=== PATIENT | female | born 1985 | race Two or more races ===

== ENCOUNTER 2025-09-07 18:09 | Emergency (ER) | payer OTHER, SELFPAY ==
[2025-09-07 18:39] VITALS: BP 148/91; PULSE 114; RESP 18; TEMP 36.6; O2SAT 99; BMI 29.3
--- NOTE | 2025-09-07 18:42 | ED.GENADULT ---
HPI - General Adult General Chief complaint: Animal Bite Stated complaint: bit by dog yesterday Time Seen by Provider: 09/07/25 18:45 Source: patient Mode of arrival: ambulatory Limitations: no limitations History of Present Illness ED Provider: Niki Poole PA-C HPI narrative: Patient is a 40 year old assigned female at with no reported medical history presenting to the emergency department today with a dog bite to her left lower leg. Patient states that she was bit by her neighbors dog yesterday and confirmed the dog is up to date on his vaccinations and she is up to date on her tetanus status. Patient states that she was only bit on her left lower leg. Patient denies any other complaints at this time. Related Data Previous Rx's ?Medication ?Instructions ?Recorded doxycycline hyclate 100 mg tablet 100 mg PO BID 7 days #14 tabs 09/07/25 metronidazole 500 mg tablet 500 mg PO TID 7 days #21 tabs 09/07/25 Allergies Allergy/AdvReac Type Severity Reaction Status Date / Time Penicillins (PENICILLINS) Allergy Severe Anaphylaxis, Verified 09/07/25 18:40 Hives latex (LATEX) Allergy Intermediate HIVES Verified 09/07/25 18:40 seafood Allergy Intermediate Hives Verified 09/07/25 18:40 amoxicillin Allergy Unknown Hives Verified 09/07/25 18:40 peanut Allergy Unknown Verified 09/07/25 18:41 Review of Systems Constitutional: Constitutional: Reports as per HPI Eyes: Eyes: Reports as per HPI ENT: Reports as per HPI Cardiovascular: Cardiovascular: Reports as per HPI Respiratory: Respiratory: Reports as per HPI Gastrointestinal: Gastrointestinal: Reports as per HPI Genitourinary: Genitourinary: Reports as per HPI Musculoskeletal: Musculoskeletal: Reports as per HPI Integumentary/Breasts: Skin/Breast: Reports as per HPI Neurologic: Reports as per HPI Psychiatric: Psychiatric: Reports as per HPI Endocrine: Endocrine: Reports as per HPI Hematologic/Lymphatic: Hematologic/Lymphatic: Reports as per HPI Allergic/Immunologic: Allergic/Immunologic: Reports as per HPI [facility] Past Medical History Attestation statement: The following information was validated with the patient. Source: old records reviewed and nursing notes reviewed Social History Social History Advance Directives: No Advance Directives Information Provided: No Physical Exam ED Vital Signs: Vital Signs - 24 hr 09/07/25 18:39 09/07/25 19:09 Temperature 98 F 98 F Pulse Rate 114 H 114 H Respiratory Rate 18 18 Blood Pressure 148/91 H 148/91 H Pulse Oximetry 99 99 Oxygen Delivery Method Room Air Room Air BMI result Body Mass Index 29.3 Const General: cooperative, no acute distress, alert and awake Nutritional Appearance: well nourished Orientation/consciousness: patient oriented x3 HENMT Head: Yes normal to inspection and Yes atraumatic Ears: hearing grossly normal bilaterally and external ears normal General nose exam: Normal external nose present, no nasal discharge noted and no epistaxis Face and sinus: Yes normal facial exam, No abrasion and No laceration Mouth: Normal oral and palatal mucosa present, no drooling and no muffled voice Eyes General: appearance normal, both eyes and all related structures Periorbital: periorbital findings normal Eyelids: Yes eyelids normal Conjunctivae: conjunctivae normal Pupils: Equal, round and reactive pupils present EOM: EOMs intact bilaterally Neck Neck: Yes normal visual inspection and Yes full ROM Resp Effort & Inspection: normal respiratory effort and able to speak in complete sentences Neuro General: patient oriented x3, moves all extremities and CN's II-XI intact bilaterally Cranial nerves: Yes Equal, round and reactive pupils present Cognition (Neuro): normal cognition Extrem Other: General: Yes full ROM and Yes capillary refill normal Psych Appearance: grossly normal Mental Status: mental status grossly normal Affect: normal affect Attitude: cooperative Thought process: Normal thought process present Thought content: Normal thought content present Insight: Good insight present (Psych) Medical Decision Making Medical Decision Making MDM Narrative: Patient is a 40 year old assigned female at with no reported medical history presenting to the emergency department today with a dog bite to her left lower leg. Patient's physical exam was as noted in the physical exam portion of this note. No gaping areas requiring closure. I explained my physical exam findings to the patient. I answered all questions asked by the patient. Patient did not need to be brought up to date with tetanus given she already is and she confirmed the attacking dog is up to date on vaccinations. Patient prescribed PO Doxy + Flagyl given she has severe allergy to PCN + Amoxicillin. I stressed the importance of the patient taking her medication as directed (either prescribed or as the over the counter packaging recommends). I stressed the importance of the patient following up with her primary care provider. I stressed the importance of the patient returning to the emergency department immediately if she were to develop any dizziness, shortness of breath, difficulty breathing, chest pain, blurry vision, loss of vision, nausea, vomiting, abdominal pain, fever, chills, back pain, or any other complaints. Patient verbalized agreement and understanding with this treatment plan and discharge. Differential Diagnosis Differential Diagnoses: The differential diagnosis associated with the presentation includes Dog bite Hematoma Contusion Admission/Observation Consideration of admission/observation: Escalation of care including admission/observation considered Patient would have been admitted to the hospital had her clinical presentation warranted hospital admission. Prescription Management I considered prescription management with: Antibiotic (patient prescribed prophylactic antibiotic given she was bitten by a dog) Discharge Plan Discharge Clinical Impression: Bite by animal, Contusion Patient Disposition: Home, Self-Care Instructions: Hematoma (ED) Additional Instructions: Take your medication as prescribed. IF you are prescribed home medications and/or you are taking over the counter medications at home - it is very important you continue to do so as prescribed / directed unless told otherwise. Follow up with a primary care provider. Return to the emergency department immediately if your symptoms worsen or if you develop any numbness, tingling, dizziness, shortness of breath, difficulty breathing, chest pain, blurry vision, loss of vision, nausea, vomiting, abdominal pain, fever, chills, back pain, or any other complaints. If you do not have a primary care provider - call any of the below numbers to establish and follow up with a primary care provider. [facility] Primary Care ([place]) [phone] [place] [address], [address] [facility] Primary Care ([address] [place]) [phone] [place] [address], [address] [facility], [address] [facility] Primary Care ([address] [place]) [phone] [place] [address], [address] [facility], [address] [facility] Primary Care ([place]) [phone] [place] [address] 2 [facility], [address] [facility] Family Medicine [phone] [address] [facility], [address] Please see the information below about our Patient Portal. If you are not yet enrolled in the [facility] Patient Portal, you will receive an enrollment email invitation following your visit to any [facility] care setting. You may also self-enroll in the Patient Portal by visiting our website: [email or web address] The following information is required to access the Patient Portal: - Your [facility] Medical Record Number - Your personal home email address (must match what is in your electronic medical record, Registration staff can assist with this) - Name - Date of Capabilities of the Patient Portal: - Message some providers - View upcoming appointments - Access your health summary, medical history, and visit history - View current conditions and allergies - View procedure and lab results - View your medications, including guidelines, side effects, and precautions - Complete pre-appointment questionnaires requested by your provider - Ready summary reports of your office visits and procedures To access the Patient Portal Mobile Magda, follow these directions: - Search [employer] [place] in the Magda Store or Vocalcom Store - Download the Magda - Search for [facility] - Enter your login/password Prescriptions: New metronidazole 500 mg tablet 500 mg PO TID 7 Days Qty: 21 0RF doxycycline hyclate 100 mg tablet 100 mg PO BID 7 Days Qty: 14 0RF Stand Alone Forms: Work/School Release Interventions: ED Discharge Assessment Last Done: 09/07/25 19:09 Discharge Date/Time: 09/07/25 19:10 Print Language: Montenegrin
[2025-09-07 19:09] VITALS: BP 148/91; PULSE 114; RESP 18; TEMP 36.6; O2SAT 99
--- OUTSIDE RECORDS SUMMARY | 2025-09-07 19:34 | XMS_ITS | Clinical Summary ---
Author Organization [facility] Address [address] [place] [address] Phone Care Team Providers Care Postmaster Relief Name Role Phone Physician, No Pcp Primary Care Provider Unavaila ble Allergies Active Allergy Reactions Criticality Noted Date Comments Amoxicillin Anaphylaxis High 03/09/2017 Rash, dyspnea, chest heaviness Latex Anaphylaxis High 03/09/2017 Rash, dyspnea, chest heaviness Other Anaphylaxis High 07/01/2019 Seafood Rash, dyspnea, chest heaviness Peanut Itching 09/22/2021 Itchy throat. No swelling or trouble breathing. Penicillin G Anaphylaxis High 03/09/2017 Rash, dyspnea, chest heaviness Medications ibuprofen (ADVIL,MOTRIN) 600 mg tablet TAKE 1 TABLET BY MOUTH EVERY 6 HOURS NEEDED FOR CRAMPS 12/15/2023 Active PNV 112/iron/folic/ om3/dha/epa (VITAFOL GUMMIES ORAL) Vit-Fe Mqxz-UZ-Htreh (Vitafol Gummies) 3.33-0.333-34 .8 MG Chew Tab Patient sig: Take 3 Tablets by mouth daily. 03/24/2024 Active norgestimate-et hinyl estradioL (ORTHO-CYCLEN) 0.25-35 mg-mcg per tablet Take 1 Tablet by mouth daily for 360 days. 01/31/2024 Active Active Problems Problem Noted Date Diagnosed Date Poor dentition 05/31/2023 Overview (01/13/2025): Pt has no teeth and states in june she will be going to get fitted for dentures Immunizations Immunization Administration Dates Next Due Influenza trivalent, with preservative (Fluzone; Afluria) 6mo and older 08/26/2012 Tdap Tetanus diptheria acell ular pertussis (Boostrix; Adacel) 7yo and older 10/03/2023,01/18/2022,10/31/2019,2016 Varicella live (Varivax) 12m o and older 12/15/2023,01/28/2020 Surgical History Surgery Date Site/Laterality Comments MULTIPLE TOOTH EXTRACTIONS 2018 PROCEDURE: EACH ADD TOOTH EXTRACTION; COMMENT: upper partial plate Medical History Medical History Date Comments Anxiety and depression DX:Anxiet y and depression Obese 05/31/2023 DX:Obese; COMMEN T: bmi 31.4 Spontaneous DX:Spontane ous ; COMMENT: x2 recent Poor dental hygiene DX:Poor dent al hygiene PPH ( hemorrhage) DX:P PH ( hemorrhage); COMMENT: 2004- no blood transfusion records recieved Gestational hypertension DX:Gest ational hypertension Gonorrhea 10/20/2021 DX:Gonorrhea; CO MMENT: during History of chlamydia DX:History of chlamydia History of trichomoniasis DX:His tory of trichomoniasis History of 2019 novel crouch virus disease (COVID-19) 05/2021 DX:History of 2019 novel cor onavirus disease (COVID-19) Family History Medical History Relation Name Comments Kidney cancer Maternal Grandmother Other: heart problems Mother not in contact Relation Name Status Comments Brother not in contact Father not in contact Alive Maternal Grandfather Maternal Grandmother Mother not in contact Alive Sister not in contact Social History Tobacco Use Types Packs/Day Years Used Date Smoking Tobacco: Former Cigarettes Q uit: 03/12/2023 Smokeless Tobacco: Never Alcohol Use Standard Drinks/Week Comments No 0 (1 standard drink = 0.6 oz pur e alcohol) Comments Unknown Sex and Gender Information Value Date Recorded Sex Assigned at Not on file Legal Sex Female 7:16 AM EST Gender Identity Not on file Sexual Orientation Not on file Obstetrics History * This document contains information received from the source organization and may not represent a complete record from that organization. Para Term AB IAB SAB Ectopic Multiple Livin g Live Births 7 5 5 0 0 0 5 5 Date Outcome GA Total Labor Labor/2nd/3rd Weight Sex Type Anes PTL Claire A1 A5 Name Clin 2004 005 Term 42w 0d 3h 00m/ 3317 g (117 oz) M Vag-S pont None N Livin g 9 9 Complications:Other Excessiv e Bleeding [facility] Comments:induced, sharonda brown PPH without blood tranfusion , fob 1 07/2016 017 Term 40w 1d 4139 g (146 oz) M Vag-S pont None N Livin g 8 9 Jr Glenn South CNM Complications:None Delivery Location:[facility] Comments:fob 2 020 Term 39w 5d 3827 g (135 oz) M Vag-S pont Livin g 8 9 Cecilio Han CNM Delivery Location:[facility] Comments:fob 2 022 Term 39w 1d 3930 g (138.6 oz) M Vag-S pont None N Livin g 8 9 Smith avilez CNM Complications:Carrier of mary up B Streptococcus Comments:fob 2 024 Term 38w 2d 3600 g (127 oz) M Vag-S pont None Clairein g [place] avilez CNM Complications:None Last Filed Vital Signs Vital Sign Reading Time Taken Comments Blood Pressure 120/80 01/31/2024 9:04 AM EDT Pulse 90 01/31/2024 9:04 AM EDT Temperature - - Respiratory Rate - - Oxygen Saturation - - Inhaled Oxygen Concentration - - Weight 82.1 kg (181 lb) 01/31/2024 9:04 AM EDT Height 157.5 cm (5' 2 ) 05/31/2023 9:54 AM EDT Body Mass Index 33.11 05/31/2023 9:54 AM EDT Plan of Treatment Health Maintenance Due Date Last Done Comments Breast Cancer Screening 1985 Hepatitis B Vaccines (1 of 3 - 19+ 3-dose series) 2004 HPV Vaccines (1 - 3-dose SCDM series) 2012 Social Influencers of Health Screening 10/15/2022 Depression Screening 11/12/2024 COVID-19 Vaccine ( season) 2025 Influenza Vaccine (#1) 2025 08/26/2012 Cervical Cancer Screening: HPV 06/14/2028 06/14/2023 DTaP,Tdap,and Td Vaccines (5 - Td or Tdap) 10/03/2033 10/03/2023, 01/18/2022, 10/31/2019, Additional history exists RSV Immunization Adult Patients (1 - 1-dose 75+ series) 2060 HIV Screening Completed 05/31/2023 Hepatitis C Screening Completed 05/31/2023 Varicella Vaccines Aged Out 12/15/2023, 01/28/2020 No longer eligible based on patient's age to complete this topic HIB Vaccines Aged Out No longer eligi ble based on patient's age to complete this topic Hepatitis A Vaccines Aged Out No long er eligible based on patient's age to complete this topic IPV Vaccines Aged Out No longer eligi ble based on patient's age to complete this topic MMR Vaccines Aged Out No longer eligi ble based on patient's age to complete this topic Meningococcal ACWY Vaccine Aged Out N o longer eligible based on patient's age to complete this topic Meningococcal B Vaccine Aged Out No l onger eligible based on patient's age to complete this topic Pneumococcal Vaccine: Pediatrics (0 to 5 Years) and At-Risk Patients (6 to 49 Years) Aged Out No longer eligible based on patient's age to complete this topic RSV Immunization Patients Under 20 months Aged Out No longer eligible based on patient's age to complete this topic Procedures Procedure Name Priority Date/Time Associated Diagnosis Comments HPV Routine 06/14/2023 HEPATITIS C SCREENING Routine 05/31/2023 HIV SCREENING Routine 05/31/2023 from Last 3 Months or Most Recently Relevant to Health Maintenance Results * Cervical Cancer Screening: HPV (06/14/2023) Pathologist [facility] Cervical Cancer Screening: HPV negative,a bstracted Historical Provider MD HEALTH MAINTENANCE Final Result * HIV Screening (05/31/2023) [facility] HIV Screening abstracted us Historical Provider HEALTH MAINTENANCE Final Result * Hepatitis C Screening (05/31/2023) Hepatitis C Screening abstracted Historical Provider HEALTH MAINTENANCE Final Result from Last 3 Months or Most Recently Relevant to Health Maintenance Insurance [facility] [employer] Advance Directives Documents on File Type Date Recorded Patient [employer] Expl anation Health Care Decision (hx) 01/30/2020 AD ALLEN DIRECTIVE Health Care Decision (hx) 01/30/2020 AD ALLEN DIRECTIVE Health Care Decision (hx) 01/30/2020 AD ALLEN DIRECTIVE Care Teams Postmaster Relief Relationship Specialty Start Date End Date Physician, No Pcp PCP - General 01/12/25
--- OUTSIDE RECORDS SUMMARY | 2025-09-07 19:34 | XMS_ITS ---
Author Name [facility] Organization Unknown Care Team Organization Name Specialty Phone Email Start Date End Da umberto [facility] 04/20/2023 06/30/2024
== END 2025-09-07 19:10 | disposition home or self-care (01) ==
PROVIDERS: Emergency Provider Emergency Medicine
DX: S81.852A Open bite, left lower leg, initial encounter (principal); S80.12XA Contusion of left lower leg, initial encounter; W54.0XXA Bitten by dog, initial encounter; Y93.9 Activity, unspecified; Y92.9 Unspecified place or not applicable; Y99.8 Other external cause status
CPT/HCPCS: 99282; 99283